=== PATIENT | female | born 1990 | race Native Hawaiian/Other Pacific Islander ===

== ENCOUNTER 2016-10-06 10:19 | Emergency (ER) | payer OTHER ==
[~2016-10-06] VITALS: Ht 152.4 cm; Wt 82.8 kg
[2016-10-06 10:20] VITALS: BP 127/76
[2016-10-06] MEDS ORDERED: ONDANSETRON 4 MG ORAL DISINTEGRATING TAB (S0181) PO ONE (11:30)
[2016-10-06] MEDS ORDERED: ZOFR4TAB3 PO (11:39)
== END 2016-10-06 11:46 | disposition home or self-care (01) ==
LOC: M ED 10:19
DX: R10.9 Unspecified abdominal pain (principal); R11.2 Nausea with vomiting, unspecified

== ENCOUNTER 2018-01-17 11:30 | Emergency (ER) | payer OTHER ==
[2018-01-17 12:14] LABS: KETONE, URINE AUTO RFX NEGATIVE (NEGATIVE); LEUKOCYTE ESTERASE UR AUTO RFX NEGATIVE (NEGATIVE); NITRITE, URINE AUTO RFX NEGATIVE (NEGATIVE); RBC, URINE AUTO RFX 1 /HPF (0-3); SPECIFIC GRAVITY UR AUTO RFX 1.008 (1.002-1.035); SQUAM EPITHELIAL CELL UR AURFX 0 /HPF (0-6); WBC, URINE AUTO RFX 1 /HPF (0-3)
[2018-01-17 12:59] LABS: HCG, SERUM QUANTITATIVE 79096 MIU/ML
== END 2018-01-17 13:56 | disposition home or self-care (01) ==
LOC: M ED 11:30
DX: O20.8 Other hemorrhage in early pregnancy (principal); Z3A.09 9 weeks gestation of pregnancy
CPT/HCPCS: 76801